=== PATIENT | male | born 1985 | race Caucasian/White ===

== ENCOUNTER 2018-11-03 12:18 | Emergency (ER) | payer MEDICARE ==
[~2018-11-03] VITALS: Ht 185.4 cm; Wt 115.9 kg
[2018-11-03 12:41] VITALS: Ht 185.4 cm; Wt 115.9 kg
[2018-11-03] MEDS ORDERED: ABILIFY10 MG PO (12:43)
[2018-11-03] MEDS ORDERED: LAMICTAL150 M1 PO (12:43)
[2018-11-03] MEDS ORDERED: PROTONIX20 MG PO (12:44)
[2018-11-03] MEDS ORDERED: BUPROPION HCL200 M1 PO (12:44)
[2018-11-03] MEDS ORDERED: PROTONIX40 MG PO (15:11)
[2018-11-03 15:37] VITALS: BP 124/77
== END 2018-11-03 15:30 | disposition home or self-care (01) ==
LOC: D.ER 12:18
DX: F45.8 Other somatoform disorders (principal); K21.9 Gastro-esophageal reflux disease without esophagitis; R49.0 Dysphonia

== ENCOUNTER 2019-04-18 20:45 | Emergency (ER) | payer MEDICARE ==
[~2019-04-18] VITALS: Ht 185.4 cm; Wt 120.2 kg
[~2019-04-18 20:45] MED LIST: ABILIFY10 MG PO; BUPROPION HCL200 M1 PO; LAMICTAL150 M1 PO; PROTONIX20 MG PO; PROTONIX40 MG PO
[2019-04-18 20:57] VITALS: Ht 185.4 cm; Wt 120.2 kg
[2019-04-18] MEDS ORDERED: PREDNISONE5 MG/5 ML PO (20:58)
[2019-04-18] MEDS ORDERED: PROZAC20 MG PO (20:59)
[2019-04-18] MEDS ORDERED: LAMICTAL150 M1 PO (20:59)
[2019-04-18] MEDS ORDERED: PHAZYME180 MG PO (21:50)
[2019-04-18 22:10] VITALS: BP 142/89
== END 2019-04-18 22:10 | disposition home or self-care (01) ==
LOC: D.ER 20:45
DX: K21.9 Gastro-esophageal reflux disease without esophagitis (principal); R14.2 Eructation; F17.210 Nicotine dependence, cigarettes, uncomplicated

== ENCOUNTER 2019-04-25 12:46 | Emergency (ER) | payer MEDICARE ==
[~2019-04-25] VITALS: Ht 185.4 cm; Wt 120.5 kg
[~2019-04-25 12:46] MED LIST changes: +PHAZYME180 MG PO; +PREDNISONE5 MG/5 ML PO; +PROZAC20 MG PO
[2019-04-25 12:56] VITALS: Ht 185.4 cm; Wt 120.5 kg
[2019-04-25] MEDS ORDERED: KEFLEX500 MG PO (14:18)
[2019-04-25] MEDS ORDERED: PREDNISONE10 MG PO (14:18)
[2019-04-25 14:30] VITALS: BP 132/79
== END 2019-04-25 14:32 | disposition home or self-care (01) ==
LOC: D.ER 12:46
DX: K12.1 Other forms of stomatitis (principal); K14.0 Glossitis

== ENCOUNTER 2019-05-17 21:54 | Emergency (ER) | payer MEDICARE ==
[~2019-05-17] VITALS: Ht 185.4 cm; Wt 120.5 kg
[~2019-05-17 21:54] MED LIST changes: +KEFLEX500 MG PO; +PREDNISONE10 MG PO
[2019-05-17 22:05] VITALS: BP 138/105; Ht 185.4 cm; Wt 120.5 kg
[2019-05-17 22:24] LABS: APPEARANCE CLEAR (CLEAR); BILIRUBIN NEGATIVE (NEGATIVE); COLOR YELLOW (YELLOW); GLUCOSE NEGATIVE (NEGATIVE); KETONE LARGE mg/dL (NEGATIVE); NITRITE NEGATIVE (NEGATIVE); PROTEIN TRACE mg/dL (NEGATIVE); UROBILINOGEN NORMAL (NORMAL)
[2019-05-17 22:32] LABS: UDS - AMPHET POSITIVE QUAL (NEGATIVE); UDS - BARB NEGATIVE QUAL (NEGATIVE); UDS - BENZO NEGATIVE QUAL (NEGATIVE); UDS - COCAINE NEGATIVE QUAL (NEGATIVE); UDS - OPIATE NEGATIVE QUAL (NEGATIVE); UDS - PCP NEGATIVE QUAL (NEGATIVE); UDS - THC POSITIVE QUAL (NEGATIVE)
[2019-05-17 22:46] LABS: BASOPHILS 0.2 % (0-2); EOSINOPHILS 0.5 % (0-7); HEMATOCRIT 47.5 % (42.0-54.0); HEMOGLOBIN 16.6 g/dL (13.5-17.5); IMMATURE GRANULOCYTES 0.2 % (0-5); LYMPHOCYTES 21.1 % (15-50); MCH 31.1 pg (26.0-34.0); MCHC 34.9 g/dL (31.0-37.0); MCV 89.1 fL (80.0-100.0); MEAN PLATELET VOLUME 9.8 fL (7.4-10.4); MONOCYTES 6.8 % (2-11); NEUTROPHILS 71.2 % (40-80); PLATELET COUNT 282 10x3/uL (130-400); RBC 5.33 10x6/uL (4.20-6.10); RDW 12.8 % (11.5-14.5); WBC 13.3 10x3/uL (4.8-10.8)
[2019-05-17 22:54] LABS: CALC OSMOLALITY 278 mosm/kg (275-300); CALCIUM 9.6 mg/dL (8.5-10.1); CARBON DIOXIDE 22.9 mmol/L (21.0-32.0); CHLORIDE - SERUM 102 mmol/L (98-107); CREATININE - SERUM 0.9 mg/dL (0.6-1.3); GLUCOSE 94 mg/dL (74-106); POTASSIUM - SERUM 3.8 mmol/L (3.5-5.1); SODIUM 138 mmol/L (136-145); UREA NITROGEN 21 mg/dL (7-18); eGFR NON AFRICAN AMERICAN > 90 mL/min (90-120)
[2019-05-17 23:00] LABS: ALBUMIN 4.4 g/dL (3.4-5.0); ALKALINE PHOSPHATASE 64 U/L (46-116); ALT (SGPT) 52 U/L (10-68); BILIRUBIN - TOTAL 0.69 mg/dL (0.2-1.3); PROTEIN - SERUM 8.5 g/dL (6.4-8.2)
[2019-05-19] MEDS ORDERED: ABILIFY10 MG PO (01:57)
[2019-05-19] MEDS ORDERED: LAMICTAL100 MG PO (01:57)
== END 2019-05-18 08:44 | disposition home or self-care (01) ==
LOC: D.ER 21:54
PROVIDERS: Emergency Medicine
DX: F20.9 Schizophrenia, unspecified (principal); F31.9 Bipolar disorder, unspecified

== ENCOUNTER 2019-05-19 01:27 | Emergency (ER) | payer MEDICARE ==
[~2019-05-19] VITALS: Ht 185.4 cm; Wt 120.5 kg
[2019-05-19 01:30] VITALS: BP 136/79; Ht 185.4 cm; Wt 120.5 kg
[2019-05-19] MEDS ORDERED: ABILIFY10 MG PO (01:57)
[2019-05-19] MEDS ORDERED: LAMICTAL100 MG PO (01:57)
== END 2019-05-19 02:38 | disposition home or self-care (01) ==
LOC: D.ER 01:27
DX: F20.9 Schizophrenia, unspecified (principal); F31.9 Bipolar disorder, unspecified

== ENCOUNTER 2020-08-27 15:14 | Emergency (ER) | payer MEDICAID ==
[~2020-08-27] VITALS: Ht 185.4 cm; Wt 65.9 kg
[~2020-08-27 15:14] MED LIST changes: +LAMICTAL100 MG PO
[2020-08-27 15:17] VITALS: Ht 185.4 cm; Wt 65.9 kg
[2020-08-27 15:43] LABS: BASOPHILS 0.3 % (0-2); EOSINOPHILS 0.8 % (0-7); HEMATOCRIT 39.1 % (42.0-54.0); HEMOGLOBIN 13.3 g/dL (13.5-17.5); IMMATURE GRANULOCYTES 0.3 % (0-5); LYMPHOCYTE ABS# 2.49 10x3/uL (1.32-3.57); LYMPHOCYTES 21.7 % (15-50); MCV 91.1 fL (80.0-100.0); MEAN PLATELET VOLUME 9.6 fL (7.4-10.4); NEUTROPHIL ABS# 7.67 10x3/uL (1.78-5.38); NEUTROPHILS 66.9 % (40-80); PLATELET COUNT 231 10x3/uL (130-400); RBC 4.29 10x6/uL (4.20-6.10); RDW 13.5 % (11.5-14.5); WBC 11.5 10x3/uL (4.8-10.8)
[2020-08-27 15:49] LABS: CALC OSMOLALITY 273 mosm/kg (275-300); CARBON DIOXIDE 29.9 mmol/L (21.0-32.0); CHLORIDE - SERUM 103 mmol/L (98-107); CREATININE - SERUM 0.8 mg/dL (0.6-1.3); GLUCOSE 86 mg/dL (74-106); POTASSIUM - SERUM 3.8 mmol/L (3.5-5.1); SODIUM 137 mmol/L (136-145); UREA NITROGEN 14 mg/dL (7-18); eGFR NON AFRICAN AMERICAN > 90 mL/min (90-120)
[2020-08-27 15:52] LABS: BILIRUBIN NEGATIVE (NEGATIVE); KETONE NEGATIVE (NEGATIVE); NITRITE NEGATIVE (NEGATIVE); UROBILINOGEN NORMAL mg/dL (< 2)
[2020-08-27 15:54] LABS: ALBUMIN 4.2 g/dL (3.4-5.0); ALKALINE PHOSPHATASE 72 U/L (30-120); ALT (SGPT) 20 U/L (10-68); BILIRUBIN - TOTAL 0.54 mg/dL (0.2-1.3); MAGNESIUM - SERUM 1.9 mg/dL (1.8-2.4); PROTEIN - SERUM 7.6 g/dL (6.4-8.2)
[2020-08-27 15:55] LABS: SARS-CoV-2 ANTIGEN NEGATIVE- SARS-COV-2 (NEGATIVE)
[2020-08-27 15:57] LABS: UDS - AMPHET POSITIVE QUAL (NEGATIVE); UDS - BARB NEGATIVE QUAL (NEGATIVE); UDS - BENZO NEGATIVE QUAL (NEGATIVE); UDS - COCAINE NEGATIVE QUAL (NEGATIVE); UDS - OPIATE NEGATIVE QUAL (NEGATIVE); UDS - PCP NEGATIVE QUAL (NEGATIVE); UDS - THC POSITIVE QUAL (NEGATIVE)
[2020-08-27 19:56] VITALS: BP 137/851
== END 2020-08-27 19:56 | disposition other institution (70) ==
LOC: D.ER 15:14
PROVIDERS: Family Medicine
DX: F23 Brief psychotic disorder (principal); R41.82 Altered mental status, unspecified

== ENCOUNTER 2020-10-09 20:33 | Emergency (ER) | payer MEDICAID ==
[~2020-10-09] VITALS: Ht 185.4 cm; Wt 68.0 kg
[2020-10-09 20:36] VITALS: BP 130/81; Ht 185.4 cm; Wt 68.0 kg
[2020-10-09 21:29] LABS: BASOPHILS 0.3 % (0-2); EOSINOPHILS 2.2 % (0-7); HEMOGLOBIN 13.5 g/dL (13.5-17.5); LYMPHOCYTES 27.8 % (15-50); MCH 30.8 pg (26.0-34.0); MCHC 34.6 g/dL (31.0-37.0); MONOCYTES 6.8 % (2-11); NEUTROPHIL ABS# 5.43 10x3/uL (1.78-5.38); NEUTROPHILS 62.9 % (40-80); PLATELET COUNT 236 10x3/uL (130-400); RBC 4.38 10x6/uL (4.20-6.10); RDW 13.3 % (11.5-14.5); WBC 8.6 10x3/uL (4.8-10.8)
[2020-10-09 21:32] LABS: CALC OSMOLALITY 282 mosm/kg (275-300); CALCIUM 9.2 mg/dL (8.5-10.1); CHLORIDE - SERUM 105 mmol/L (98-107); CREATININE - SERUM 0.9 mg/dL (0.6-1.3); GLUCOSE 112 mg/dL (74-106); POTASSIUM - SERUM 3.8 mmol/L (3.5-5.1); SODIUM 140 mmol/L (136-145); UREA NITROGEN 21 mg/dL (7-18); eGFR NON AFRICAN AMERICAN > 90 mL/min (90-120)
[2020-10-09 21:36] LABS: ALBUMIN 3.9 g/dL (3.4-5.0); ALKALINE PHOSPHATASE 68 U/L (30-120); ALT (SGPT) 22 U/L (10-68); BILIRUBIN - TOTAL 0.28 mg/dL (0.2-1.3); PROTEIN - SERUM 7.3 g/dL (6.4-8.2)
[2020-10-09 23:21] LABS: BILIRUBIN NEGATIVE (NEGATIVE); KETONE NEGATIVE (NEGATIVE); NITRITE NEGATIVE (NEGATIVE); UROBILINOGEN NORMAL mg/dL (< 2)
[2020-10-09 23:28] LABS: UDS - AMPHET POSITIVE QUAL (NEGATIVE); UDS - BARB NEGATIVE QUAL (NEGATIVE); UDS - BENZO NEGATIVE QUAL (NEGATIVE); UDS - COCAINE NEGATIVE QUAL (NEGATIVE); UDS - OPIATE NEGATIVE QUAL (NEGATIVE); UDS - PCP NEGATIVE QUAL (NEGATIVE); UDS - THC POSITIVE QUAL (NEGATIVE)
== END 2020-10-09 23:45 | disposition home or self-care (01) ==
LOC: D.ER 20:33
PROVIDERS: Family Medicine
DX: R41.82 Altered mental status, unspecified (principal); F15.10 Other stimulant abuse, uncomplicated